=== PATIENT | male | born 1950 | race Caucasian/White ===

== ENCOUNTER 2020-01-14 20:23 | Inpatient (IN) | payer MEDICARE ==
[2020-01-14] MEDS ORDERED: Bisacodyl 10 MG SUPP PR PRN (21:06)
[2020-01-14] MEDS ORDERED: Docusate 100 MG CAP PO PRN (21:06)
[2020-01-14] MEDS ORDERED: Famotidine/PF 20 mg/2ml Vial SLOW IVP SCH (21:30)
[2020-01-14] MEDS: niCARdipine 25 MG in Sodium Chloride 0.9% 250 ML 240 ML IVPB PRN ×2 (21:39→23:22)
[2020-01-14] MEDS: Sodium Chloride 0.9% 1,000 ML IV SCH (21:50)
--- NOTE | 2020-01-14 22:50 | HP ---
HISTORY OF PRESENT ILLNESS: Mr. Tyson is a 69-year-old man, who was transferred to [facility] in [place] by EMS transfer from [facility] after presentation to the emergency department there following events at home, where he was found down in his room in a "puddle of the urine and vomit" by his family. They called 911 who came and picked him up and brought to the ER. At the [facility], CT scan of the brain was performed, which revealed a 3.5 x 3.8 cm intracerebral hemorrhage in the left cerebral hemisphere causing compression of the fourth ventricle and mild compression to the brainstem. There is also perhaps some extension into the fourth ventricle as well. He does have enlarged ventricles; however, these are stable compared to 2018 MRI of the brain. He has extensive cortical atrophy and several areas of prior infarct with malacic changes. The patient reportedly has a GCS of 12 upon presentation there and is being transferred to the ICU here in [place]. PAST MEDICAL HISTORY: Inconclusive. His family was not present at the time of interview in the ER nor at bedside here in the ICU. The patient does not have a contact information, and we do not have that available in the chart, but reportedly, he takes several medications for hypertension, diabetes, coronary arterial disease, and history of cerebrovascular accident. PAST SURGICAL HISTORY: None listed. The patient is unable to name them. MEDICATIONS: The patient unable to name. ALLERGIES: PENICILLINS AND ATORVASTATIN. PHYSICAL EXAMINATION: NEUROLOGICAL: The patient is, to my surprise, awake, alert, and oriented to name, date of , current date, location, and setting. Pupils are equally round and reactive to light. Extraocular movements are intact. There is no lid lag. There is no sign of facial droop. All cranial nerves appear to be intact. He has excellent strength proximally and distally in all four extremities. There is no sensation abnormality that I can discern. He does have great difficulty performing xbvggd-wevp-ddhjzh and gnsc-lo-fcji slides. This is most certainly related to ataxia secondary to hemorrhage in the cerebellum. VITAL SIGNS: Currently, the patient's heart rate is just about 100, systolic pressure is 119, mean arterial pressure 84, oxygen saturation at 96 on nasal cannula. ASSESSMENT: Acute intracerebral hemorrhage, likely secondary to hypertension. PLAN: Mr. Tyson appears quite well given the size and nature of his hemorrhage. I do not believe he is in need of surgical intervention in the immediate present, though this could certainly change in the next 24-48 hrs. The patient's systolic pressures upon presentation were in the 180s to 190s. He is now in excellent range in the 119s. He will need to remain under 160. For this, we have started a Cardene drip. We will need to repeat a CT scan overnight to re-evaluate hemorrhage size. I discussed with the patient the possibility of surgical intervention, which he consents to should the need arise. Q 1 hour neuro checks. Sauceda has been inserted, and we will monitor his input and output q.1 hour. Consultations have been ordered to Critical Care and to the Hospitalist Service. The patient's blood sugar upon presentation was 307, so we will initiate a p.r.n. moderate sliding scale with q.6 hour blood glucose checks. We will make patient n.p.o though may have ice chips for now. We will need to confirm his medication list with Geeta, his sister, so that we may restart home medications as needed. It is in his history that at some point he took Plavix for prior CVA. We will go ahead and initiate 1 unit of platelets stat. At this time, no additional intervention is planned. Job ID: [id number] MTDD
[2020-01-15] MEDS ORDERED: Dextrose 50% Abboject 50 ML SYRINGE IVP PRN (00:09)
[2020-01-15] MEDS ORDERED: Dextrose 5% in Water 1,000 ML IV PRN (00:09)
[2020-01-15] MEDS: Insulin Regular 300 UNITS/3 ML VIAL SC PRN ×3 (00:35→17:53)
[2020-01-15] MEDS: niCARdipine 25 MG in Sodium Chloride 0.9% 250 ML 240 ML IVPB PRN ×7 (00:44→23:18)
[2020-01-15 03:46] LABS: Anion Gap 16 mmol/L (10-20); BUN (Urea Nitrogen) 27 mg/dL (8.4-25.7); Calc. Creatinine Clearance 74 mL/min (70-130); Carbon Dioxide 20 mmol/L (23-31); Chloride 105 mmol/L (98-107); Estimated GFR-MDRD 53; Sodium 137 mmol/L (136-145)
[2020-01-15 03:47] LABS: Calcium 9.5 mg/dL (7.8-10.44); Glucose 273 mg/dL (80-115)
[2020-01-15 05:18] LABS: Hemoglobin 13.2 g/dL (14.0-18.0); Mean Corpuscular HGB CONC 34.2 g/dL (32.0-36.0); Mean Corpuscular Hemoglobin 33.5 pg (27.0-31.0); Mean Platelet Volume 8.7 fL (7.4-10.4); Platelet Count 281 thou/uL (130-400); Red Blood Cell (RBC) Count 3.93 mill/uL (4.70-6.10); White Blood Cell (WBC) Count 19.5 thou/uL (4.8-10.8)
[2020-01-15 05:26] LABS: #Lymphocytes 1.9 thou/uL (1.20-3.40); #Monocytes 1.6 thou/uL (0.11-0.59); %Basophils 0.1 % (0.0-1.0); %Eosinophils 0.1 % (0.0-10.0); %Lymphocytes 9.7 % (21.0-51.0); %Monocytes 8.1 % (0.0-10.0); %Neutrophils 82.1 % (42.0-75.0); Platelet Morphology Comment Appears Adequate
--- NOTE | 2020-01-15 08:14 | PDOC.HOSPP ---
- Subjective Encounter Date: 01/15/20 Encounter Time: 07:00 Subjective: Consult Note The history is based on EMR since the patient is a poor historian. Mr. Tyson is a 69yo M HISTORY OF PRESENT ILLNESS: Mr. Tyson is a 69-year- old man who was found down yesterday. Initially presented at [facility], CT head showed intracerebral hemorrhage in the left cerebral hemisphere causing compression of the fourth ventricle and mild compression to the brainstem so was transfered to [facility]. Was found to have grossly elevated blood pressure, started on cardizem drip, which brought his blood pressure down. Per neurosurgery, no indication for surgery at the time. Of note , the patient endorses being adherent to his medications including aspirin and plavix which he states are taken for CABG he underwent two years ago. These were held on admission on encounter, complaining of posterior, pressure, constant headache for the past two days and a dry mouth. Denies change in vision, focal weakness, paresthesias, dyspnea, dysphagia, dysarthria, chest pain, palpitations, history of bleeding or seizures. PAST SURGICAL HISTORY: Patient reports CABG two years ago. Will require confirmation SH: no smoking, drinking, or recreational drugs FH: no history of excessive bleeding MEDICATIONS: Reconciled ALLERGIES: PENICILLINS AND ATORVASTATIN. - Objective Vital Signs & Weight: Vital Signs (12 hours) Temp Pulse Ox 01/15/20 07:26 94 L 01/15/20 07:00 97.9 F 01/15/20 04:00 98.7 F 01/15/20 00:00 98.3 F 01/14/20 21:05 97 Weight Weight 218 lb 6.4 oz Most Recent Monitor Data Heart Rate from ECG 100 NIBP 115/62 NIBP BP-Mean 79 Respiration from ECG 23 SpO2 93 I&O: 01/14/20 01/15/20 01/16/20 06:59 06:59 06:59 Intake Total 2101 Output Total 145 32 Balance 1956 - Result Diagrams: 01/15/20 03:16 01/15/20 03:16 Additional Labs: Accuchecks 01/15/20 01/15/20 05:44 00:07 POC Glucose 220 H 301 H Hospitalist ROS - Review of Systems Constitutional: reports: weakness. denies: chills, sweats, malaise Eyes: denies: vision change Respiratory: denies: shortness of breath, SOB with excertion, pleuritic pain Cardiovascular: denies: chest pain, palpitations, orthopnea Gastrointestinal: denies: nausea, vomiting, abdominal pain Musculoskeletal: denies: neck pain, shoulder pain, arm pain, back pain, leg pain Skin: denies: rash Neurological: reports: weakness (endorses beign slightly weaker on left side from previous CVA) - Medication Medications: Active Medications Generic Name Dose Route Start Last Admin Trade Name Freq PRN Reason Stop Dose Admin Nicardipine HCl 25 mg/ Sodium 250 mls @ 0 mls/hr 01/14/20 21:06 01/15/20 06: 03 Chloride IVPB 250 mls INF PRN Administration SBP GREATER THAN 160 Protocol Titrate Sodium Chloride 1,000 mls @ 80 mls/hr 01/14/20 21:30 01/14/20 21:50 Normal Saline 0.9% IV 1,000 mls .[id number] DINESH Administration Insulin Human Regular 0 units 01/15/20 00:09 01/15/20 05:44 Humulin R SC 4 unit .MODERATE SLIDING SC PRN Administration MODERATE SLIDING SCALE Protocol - Exam General Appearance: awake alert General - other findings: mild distress due to headache, midly drowsy Eye: PERRL, anicteric sclera Eye - other findings: EOMI ENT: normocephalic atraumatic, no oropharyngeal lesions, dry oral mucosa Neck: no JVD Heart - other findings: irregularly irregular, rate controlled; anterior thoraic scar s/p cabg Respiratory: CTAB, no wheezes, no rales, no ronchi Gastrointestinal: soft, non-tender, non-distended, normal bowel sounds Extremities: no edema Neurological: cranial nerve grossly intact, normal sensation to touch, no new deficit. negative: facial droop, hemiplegia, speech deficit Neurological - other findings: 4/5 LUE, otherwise normal strength upper and lower extremities Psychiatric: normal affect, normal behavior, A&O x 3 Hosp A/P - Plan # intracerebral hemorrhage neurologically unchanged CT head repeated this AM #HTN BP well controlled with cardene drip; defer to NSG the transition to oral antiHTN when less strict BP control is required goal SBP < 160 #T2DM restart metformin; hold pioglitazone at this point to avoid hypoglycemic episodes. Pioglitazone may also cause headache which may make it more difficult to assess progression of headache caused by intracerebral hemorrhage #Afib rate controlled restart home sotalol; on cardene drip for BP control #CAD endorses taking aspirin and plavix; At this point will continue to hold considering lobar rather than deep hemorrhage; defer to NSG obtain records to assess indication for DAP. Based on patient's report, may need only aspirin but poor historian GI PPx: no Ix DVT PPx: SCDs
[2020-01-15] MEDS: Sotalol HCl 80 MG TAB PO SCH ×2 (08:31→21:19)
[2020-01-15] MEDS: Amlodipine 10 MG TAB PO SCH (08:37)
[2020-01-15] MEDS: Famotidine/PF 20 mg/2ml Vial SLOW IVP SCH ×2 (08:38→21:18)
[2020-01-15] MEDS: Lisinopril 20 MG TAB PO SCH ×2 (08:38→21:18)
[2020-01-15] MEDS ORDERED: DHA PO SCH (09:00)
[2020-01-15] MEDS ORDERED: Non-Formulary Item 1 EACH (Magnesium [Magnesium] 250 MG) PO SCH (09:00)
[2020-01-15] MEDS ORDERED: EPA PO SCH (09:00)
[2020-01-15] MEDS ORDERED: GARLIC PO SCH (09:00)
[2020-01-15] MEDS ORDERED: FISH OIL PO SCH (09:00)
[2020-01-15] MEDS ORDERED: OMEGA PO SCH (09:00)
[2020-01-15] MEDS ORDERED: ACARBOSE 25 MG PO SCH (09:00)
[2020-01-15] MEDS ORDERED: TURMERIC ROOT EXTRACT 500 MG PO SCH (09:00)
[2020-01-15] MEDS ORDERED: Non-Formulary Item 1 EACH (Benazepril Hcl [Benazepril Hcl] 20 MG) PO SCH (09:00)
[2020-01-15] MEDS: Magnesium Oxide 250 MG TAB PO SCH (09:04)
[2020-01-15] MEDS: metFORMIN 850 MG TAB PO SCH ×2 (09:04→17:34)
[2020-01-15] MEDS: Multivitamin W/ Minerals 1 TAB PO SCH (09:05)
[2020-01-15] MEDS: Pioglitazone HCl 15 MG TAB PO SCH (09:05)
[2020-01-15] MEDS: Fish Oil 1,000 MG CAP PO SCH (09:05)
--- NOTE | 2020-01-15 09:51 | PRG ---
DATE OF SERVICE: 01/15/2020 Mr. Tyson was admitted last night for acute cerebellar hemorrhage. This morning on examination, he is somewhat weaker on the left than he was last night. This is not surprising given the location of his hemorrhage. On the right, he still has excellent strength. He is a little bit more fatigued and sleepy than he had been. Additionally, though he has gone into atrial fibrillation with RVR, so this certainly may complicate his clinical presentation. He denies additional fatigue. Denies chest pain. Does report some occipital headache also. Pupils are still equally round, and reactive to light. Extraocular movements are intact. Yrxjrq-pmqz-smachp is maybe a little bit better than it was last night. CT scan overnight reveals to me somewhat better appearing hemorrhage than what initially was seen on CT, likely related to position in the scanner as his first CT gave us quite obscured oblique views of his normal anatomy and overnight CT was much better in terms of technique. Plan is to continue to follow along with no intervention at this time, though again I have had discussions with the patient about the possibility of urgent surgical intervention if the need present itself. Pressures this morning 109 systolic. We will relax the Cardene some. I appreciate input from our colleagues in Medicine. It appears his glucose is trending down. Prognosis is guarded. Job ID: [id number]
[2020-01-15] MEDS: Sodium Chloride 0.9% 1,000 ML IV SCH ×2 (11:04→23:18)
[2020-01-15] MEDS: Ondansetron PF 4 MG/2 ML Vial IVP PRN (11:26)
--- NOTE | 2020-01-15 11:40 | CT ---
PRELIMINARY REPORT/[facility]/EMERGENCY AFTER HOURS PROCEDURE: EXAM: CT Head Without Intravenous Contrast. CLINICAL HISTORY: F/U ICH HEAD CT WITHOUT CONTRAST: Date: 01-14-2020 Comparison: 07-21-17 History: Nausea, vomiting. Found on ground, unable to move. Technique: Axial CT imaging at 5 mm intervals from vertex through s kull base without contrast. FINDINGS: The imaged paranasal sinuses and mastoid air cells are well ae rated. There is no displaced calvarial fracture. There is a hyperdense lesion within the midline cer ebellum and left paracentral cerebellar hemisphere measuring 3.5 x 3.8 cm, consistent with a cerebell ar hemorrhage. There is extension into the fourth ventricle with mass effect on the fourth ventricle. There is periventricular deep and subcortical white matter hypodensity, evidence of small vessel dis ease. There is diffuse cerebral volume loss. IMPRESSION: Acute left cerebellar intraaxial hemorrhage with extension into the fourth ventricle. Results called to Dr. Londono at 7:55 p.m. 01-14-2020. Micahel rosurgical consultation advised. Dictated By: TIFFANY MARIA Signed By: TIFFANY MARIA Electronically s igned: 01/14/2020 9:05:37 PM TECHNIQUE: Axial computed tomography images of the head/brain without intravenous contrast. COMPARISON: None provided. FINDINGS: BRAIN: Hyperdense intraparenchymal hematoma measuring 3.5 x 4.5 cm centered in the medial aspect of the left cerebellar hemisphere extending into the fourth ventricle and out of the foramen of Luschka in the p osterior cervical spinal canal. Diffuse brain parenchymal atrophy with periventricular and subcortic al white matter hypodensities. VENTRICLES: No hydrocephalus. ORBITS: The orbits are unremarkable. SINUSES AND MASTOIDS: The paranasal sinuses and mastoid air cells are clear. SOFT TISSUES: No significant facial or scalp soft tissue swelling evident. No radiopaque foreign body is seen. BONES: No acute skull fracture. IMPRESSION: 1. Hyperdense lesion/hematoma measuring 3.5 x 4.5 cm centered in the medial aspect of the left cerebe llar hemisphere extending into the fourth ventricle. Underlying cerebellar lesion/metastatic disease not excluded. Recommend MRI with contrast. 2. No herniation. 3. Diffuse brain parenchymal atrophy with sequelae of chronic small vessel ischemic disease, overall severe. ELECTRONICALLY SIGNED BY: Nii Fernandez DO Jan 15, 2020 1:29:11 AM CDT This report is intended for review by the ordering physician only, in accordance of law. If you recei ve this report in error, please call [facility] at [phone]. FINAL REPORT BRAIN CT WITHOUT IV CONTRAST EMERGENCY AFTER HOURS EXAM [id number] HOURS 01/15/2020 COMPARISON: 01/14/2020. FINDINGS/IMPRESSION: Again noted is a large up to 4.5 cm diameter acute intraparenchymal hemorrhage in the medial aspect o f the left cerebellar hemisphere extending into the fourth ventricle, showing little change from the prior 01/14/2020 study. Atrophy and chronic white matter ischemic change. Consider nonemergent follow -up MRI. This report is in agreement with preliminary report by [facility]. POS: OFF
[2020-01-15] MEDS: TURMERIC CURCUMIN 500 MG PO SCH (13:08)
[2020-01-15] MEDS: Garlic 1,000 MG PO SCH (13:08)
--- NOTE | 2020-01-15 14:59 | CON ---
DATE OF CONSULTATION: 01/15/2020 HISTORY OF PRESENT ILLNESS: Mr. Tyson is a 69-year-old male, who presented after being found down. He was transferred from [facility] to here after a CAT scan showed brain hemorrhage. Neurosurgery does not feel there is any surgical intervention necessary. PAST MEDICAL HISTORY: Remarkable for; 1. History of CVA. 2. History of hypertension. 3. History of atrial fibrillation. 4. History of diabetes. 5. History of lipid disorder. 6. History of TIAs in the past. 7. History of coronary artery bypass grafting in the past. 8. History of coronary stenting in the past. SOCIAL HISTORY: He is a nonsmoker and nondrinker. 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 FAMILY HISTORY: Positive for vascular disease and diabetes. Negative for lung disease in early age. ALLERGIES: REPORTED TO LIPITOR AND PENICILLIN. MEDICATIONS: Have been reviewed. REVIEW OF SYSTEMS: A 10-point review of systems otherwise negative. PHYSICAL EXAMINATION: GENERAL: He is in no distress. VITAL SIGNS: Blood pressure 123/78, heart rate is 111, respiratory rate is 22. HEENT: Pupils reactive. He complains that he is hurting all over. He is complaining of headache. NECK: Without lymphadenopathy (he has had negative carotid workup 2 years ago) . LUNGS: Clear. HEART: Regular rhythm. S1 and S2 are distant. ABDOMEN: Soft and nontender, although he says it hurts when I palpate there, but he says it hurts when I squeeze his legs as well. EXTREMITIES: Lower extremities without asymmetry or edema. LABORATORY DATA: White count 19.5, hemoglobin 13.2, platelets 281. Sodium 137, potassium 4, chloride 105, bicarb 20, BUN 27, creatinine 1.33. Head CT shows a 3.5 x 4.5 cm hematoma in the left cerebellar hemisphere extending into the 4th ventricle, cerebral atrophy with ischemic changes IMPRESSION: Brain hemorrhage, clinically stable for now with no issue with protecting his airway and there are no respiratory issues. He has no signs of neurogenic pulmonary edema at this time. We will follow with the other physicians caring for him. This is a 70 min consult with greater than 50% of the time spent on the unit with coordination of care. Job ID: [id number] [facility]
[2020-01-15] MEDS ORDERED: Pravastatin Sodium 40 MG TAB PO SCH (21:00)
[2020-01-15] MEDS: Atorvastatin Calcium 10 MG TAB PO SCH (21:20)
[2020-01-15] MEDS ORDERED: Metoprolol Tartrate 5 MG/5 ML VIAL IVP SCH (22:07)
[2020-01-16] MEDS: Insulin Regular 300 UNITS/3 ML VIAL SC PRN ×4 (06:36→23:51)
--- NOTE | 2020-01-16 08:15 | PDOC.HOSPP ---
- Subjective Encounter Date: 01/16/20 Encounter Time: 07:00 Subjective: no overnight events. Afib continues to be poorly controlled despite restarting sotalol. This morning, complains of posterior headache that is stable. Otherwise no complaints - Objective Vital Signs & Weight: Vital Signs (12 hours) Temp Pulse BP Pulse Ox 01/16/20 07:26 94 L 01/16/20 07:11 97.9 F 01/16/20 04:00 98.1 F 01/16/20 00:00 98.3 F 01/15/20 21:19 128 H 132/90 01/15/20 21:18 137/90 Weight Weight 217 lb 11.2 oz Most Recent Monitor Data Heart Rate from ECG 128 NIBP 146/101 NIBP BP-Mean 116 Respiration from ECG 19 SpO2 95 I&O: 01/15/20 01/16/20 01/17/20 06:59 06:59 06:59 Intake Total 2101 2853 40 Output Total 145 902 120 Balance 1955 Result Diagrams: 01/15/20 03:16 01/15/20 03:16 Additional Labs: Accuchecks 01/16/20 01/16/20 01/15/20 06:39 01:31 17:41 POC Glucose 189 H 187 H 230 H 01/15/20 11:46 POC Glucose 210 H Hospitalist ROS - Review of Systems Eyes: denies: vision change Respiratory: denies: cough, dry, shortness of breath Cardiovascular: denies: chest pain, palpitations, orthopnea, paroxysmal noc. dyspnea Gastrointestinal: denies: nausea, vomiting, abdominal pain, diarrhea Neurological: denies: weakness, numbness, change in speech - Medication Medications: Active Medications Generic Name Dose Route Start Last Admin Trade Name Freq PRN Reason Stop Dose Admin Acarbose 25 mg 01/15/20 09:00 01/15/20 21:19 Precose PO 25 mg TID DINESH Administration Amlodipine Besylate 10 mg 01/15/20 09:00 01/15/20 08:37 Norvasc PO 10 mg DAILY DINESH Administration Atorvastatin Calcium 10 mg 01/15/20 21:00 01/15/20 21:20 Lipitor PO 10 mg HS DINESH Administration Famotidine 20 mg 01/15/20 09:00 01/15/20 21:18 Pepcid SLOW IVP 20 mg Q12HR DINESH Administration Fish Oil 1,000 mg 01/15/20 09:00 01/15/20 09:05 Fish Oil PO 1,000 mg DAILY DINESH Administration Nicardipine HCl 25 mg/ Sodium 250 mls @ 0 mls/hr 01/14/20 21:06 01/15/20 23: 18 Chloride IVPB 250 mls INF PRN Administration SBP GREATER THAN 160 Protocol Titrate Insulin Human Regular 0 units 01/15/20 00:09 01/16/20 06:36 Humulin R SC 2 unit .MODERATE SLIDING SC PRN Administration MODERATE SLIDING SCALE Protocol Iron/Minerals/Multivitamins 1 tab 01/15/20 09:00 01/15/20 09:05 Theragran M PO 1 tab DAILY DINESH Administration Lisinopril 20 mg 01/15/20 09:00 01/15/20 21:18 Zestril PO 20 mg BID DINESH Administration Magnesium Oxide 250 mg 01/15/20 09:00 01/15/20 09:04 Magnesium Oxide PO 250 mg DAILY DINESH Administration Metformin HCl 850 mg 01/15/20 08:00 01/15/20 17:34 Glucophage PO 850 mg BID-WM DINESH Administration Ondansetron HCl 4 mg 01/14/20 21:06 01/15/20 11:26 Zofran IVP 4 mg BIDPRN PRN Administration Nausea/Vomiting Garlic 0 each 01/15/20 09:00 01/15/20 13:08 PO Not Given DAILY DINESH Turmeric Curcumin 0 each 01/15/20 09:00 01/15/20 13:08 PO Not Given DAILY DINESH Pioglitazone HCl 45 mg 01/15/20 09:00 01/15/20 09:05 Actos PO 45 mg DAILY DINESH Administration Sotalol HCl 40 mg 01/15/20 09:00 01/15/20 21:19 Betapace PO 40 mg BID DINESH Administration - Exam General Appearance: awake alert General - other findings: mild distress due to headache Eye: PERRL, anicteric sclera Eye - other findings: pupils 3mm b/l, slightly reactive to light ENT: normocephalic atraumatic, dry oral mucosa Neck: no JVD Heart: irregular Respiratory: CTAB, no wheezes, no rales, no ronchi, normal chest expansion Gastrointestinal: soft, non-tender, non-distended, normal bowel sounds Extremities: no edema Neurological: no weakness, no new deficit. negative: facial droop, hemiplegia, speech deficit, vision deficit (left sided weakness 4/5, chronic) Psychiatric: normal affect, normal behavior, A&O x 3 Hosp A/P - Plan # intracerebral hemorrhage neurologically unchanged CT head repeated this AM #Afib w RVR rate poorly controlled continue home sotalol; match I/O; Consdering BP well controlled and afib poorly controlled, advise to transition from nicardipine to cardizem drip. avoid medications that can convert to sinus such as amiodarone since patient is off anticoagulation and can throw emboli to brain on conversion obtain records #GENE likely prerenal -Gentle NS IVF; if continues to be NPO, consider NS/D5W #HTN BP well controlled with nicardipine drip; goal SBP < 160 #T2DM continue metformin; hold pioglitazone at this point to avoid hypoglycemic episodes. Pioglitazone may also cause headache which may make it more difficult to assess progression of headache caused by intracerebral hemorrhage #CAD endorses taking aspirin and plavix; At this point will continue to hold considering lobar rather than deep hemorrhage; defer to NSG obtain records to assess indication for DAP. Based on patient's report, may need only aspirin but poor historian GI PPx: no Ix DVT PPx: SCDs
[2020-01-16] MEDS: metFORMIN 850 MG TAB PO SCH ×2 (08:33→17:03)
[2020-01-16] MEDS: Multivitamin W/ Minerals 1 TAB PO SCH (08:34)
[2020-01-16] MEDS: Fish Oil 1,000 MG CAP PO SCH (08:34)
[2020-01-16] MEDS: Sotalol HCl 80 MG TAB PO SCH ×2 (08:34→20:55)
[2020-01-16] MEDS: Magnesium Oxide 250 MG TAB PO SCH (08:34)
[2020-01-16] MEDS: Lisinopril 20 MG TAB PO SCH ×2 (08:34→20:54)
[2020-01-16] MEDS: Amlodipine 10 MG TAB PO SCH (08:34)
[2020-01-16] MEDS: Pioglitazone HCl 15 MG TAB PO SCH (08:35)
[2020-01-16] MEDS: Famotidine/PF 20 mg/2ml Vial SLOW IVP SCH ×2 (08:35→20:54)
[2020-01-16] MEDS: Garlic 1,000 MG PO SCH (09:00)
[2020-01-16] MEDS: TURMERIC CURCUMIN 500 MG PO SCH (09:00)
--- NOTE | 2020-01-16 09:58 | RAD ---
CHEST 1 VIEW PORTABLE: HISTORY: Worsening hypoxia. COMPARISON: 01/14/2020. FINDINGS: Poor inspiration. Evidence for bilateral vascular congestion which appears to be somewhat more promi nent than on the prior study. No new confluent pneumonia or pleural effusion. IMPRESSION: At least borderline-sized heart with bilateral vascular congestion. POS: OFF
--- NOTE | 2020-01-16 10:24 | PRG ---
DATE OF SERVICE: 01/16/2020 Mr. Tyson was admitted late Friday night for cerebellar hemorrhage. This morning, he continues to actually look quite well, but GCS continues to be 15. There is only some very mild confusion about his more chronic history; however, he is able to tell me that he is in the hospital at [facility]. He started to complain some about appetite, which I think we have reached a point now, where we can go ahead and start to introduce p.o. diet starting slow with clear liquids and as he tolerates this, advance to a more robust diet. Pressures have continued to look excellent. Unfortunately, he still remains in atrial fibrillation despite restarting home medications for this purpose. Medicine team has recommended Cardizem. I would defer to their judgment for dosing on this. Again, I believe at least at this point we are still able to avoid surgical intervention deciding his excellent neurologic exam. Neurosurgery will continue to follow at this time, but I believe his prognosis at this point looks to be much better than initially thought. Job ID: [id number]
[2020-01-16] MEDS: Diltiazem 125 MG in Sodium Chloride 0.9% 100 ML IVPB SCH (10:49)
--- NOTE | 2020-01-16 10:53 | PRG ---
DATE OF SERVICE: 01/16/2020 Mr. Tyson is now 2 days status post admission for a large posterior fossa hemorrhage. Despite the size of the hemorrhage and the early evidence of compromise of the fourth ventricle, we have not at this point needed to place a ventriculostomy. He does have ventriculomegaly that is stable as compared to a baseline exam perform a few years ago. He also has a substantial degree of supratentorial atrophy. Clinically, he has been quite stable. He remains awake and alert and has a GCS score of 15. He does have intermittent episodes of confusion. Medicine Team continues to work with us on treating his medical issues. We can start to advance his diet. We will continue to follow along closely as Mr. Tyson continues to recover from this hemorrhage. Job ID: [id number]
--- NOTE | 2020-01-16 15:38 | PRG ---
DATE OF SERVICE: 01/16/2020 SUBJECTIVE: Mr. Tyson is still complaining of hurting all over. He said his head hurts the worst. OBJECTIVE: VITAL SIGNS: Heart rates in the 90s, blood pressure 141/94, respiratory rate in the 20s, oximetry is 94. HEAD AND NECK: Unremarkable. LUNGS: Clear. He is not having any issues with secretions. HEART: Regular rhythm. ABDOMEN: Soft. EXTREMITIES: Without asymmetry. LABORATORY DATA: There is no new lab other than blood glucoses. IMPRESSION: Brain hemorrhage. He remains stable. Glucose control and increasing his activity will be the next step. It does not appear that he will require surgery at least at this time. We will continue to follow. ADDENDUM: Mr. Tyson's atrial fibrillation was noted today with a rate of 115 to 120. We started him on Cardizem drip and added p.o. Cardizem. His p.o. amlodipine might be discontinued tomorrow and the Cardizem dose may be increased. Job ID: [id number]
[2020-01-16] MEDS: niCARdipine 25 MG in Sodium Chloride 0.9% 250 ML 240 ML IVPB PRN (19:00)
[2020-01-16] MEDS: Atorvastatin Calcium 10 MG TAB PO SCH (20:54)
[2020-01-17] MEDS: Insulin Regular 300 UNITS/3 ML VIAL SC PRN ×2 (05:45→11:55)
[2020-01-17 08:12] LABS: Anion Gap 15 mmol/L (10-20); BUN (Urea Nitrogen) 25 mg/dL (8.4-25.7); Calc. Creatinine Clearance 128 mL/min (70-130); Calcium 9.2 mg/dL (7.8-10.44); Carbon Dioxide 27 mmol/L (23-31); Chloride 99 mmol/L (98-107); Estimated GFR-MDRD Greater than 90; Glucose 220 mg/dL (80-115); Magnesium 2.1 mg/dL (1.6-2.6); Potassium 3.7 mmol/L (3.5-5.1); Sodium 137 mmol/L (136-145)
--- NOTE | 2020-01-17 08:20 | PRG ---
DATE OF SERVICE: 01/17/2020 SUBJECTIVE: Mr. Tyson says he is feeling better. His headache is less of an issue. OBJECTIVE: VITAL SIGNS: Heart rate is 90 to 118, blood pressure 144/93, respiratory rate is 18. He is still in atrial fibrillation. LUNGS: Clear. HEART: Regular rhythm, atrial fib on monitor. ABDOMEN: Soft. EXTREMITIES: Without edema. LABORATORY DATA: Lab has not been repeated. I will order lab for tomorrow. We will continue to follow. Job ID: [id number]
[2020-01-17] MEDS: metFORMIN 850 MG TAB PO SCH ×2 (08:55→16:52)
[2020-01-17] MEDS: Famotidine 20 MG TAB PO SCH ×2 (08:56→20:46)
[2020-01-17] MEDS: Lisinopril 20 MG TAB PO SCH ×2 (08:56→20:47)
[2020-01-17] MEDS: Fish Oil 1,000 MG CAP PO SCH (08:56)
[2020-01-17] MEDS: Magnesium Oxide 250 MG TAB PO SCH (08:56)
[2020-01-17] MEDS: Multivitamin W/ Minerals 1 TAB PO SCH (08:57)
[2020-01-17] MEDS: Diltiazem 125 MG in Sodium Chloride 0.9% 100 ML IVPB SCH (08:57)
[2020-01-17] MEDS: Pioglitazone HCl 15 MG TAB PO SCH (08:57)
[2020-01-17] MEDS: Sotalol HCl 80 MG TAB PO SCH ×2 (08:58→20:46)
[2020-01-17] MEDS: TURMERIC CURCUMIN 500 MG PO SCH (11:42)
[2020-01-17] MEDS: Garlic 1,000 MG PO SCH (11:42)
--- NOTE | 2020-01-17 15:28 | PDOC.HOSPP ---
- Subjective Encounter Date: 01/17/20 Encounter Time: 07:00 Subjective: no overnight events. this morning feeling well and has no complaints. Denies headache, change in vision, dyspnea, dysphagia, dysarthria, new focal weakness - Objective Vital Signs & Weight: Vital Signs (12 hours) Temp Pulse Resp BP BP BP Pulse Ox 01/17/20 14:42 97 152/84 H 01/17/20 14:23 98.3 F 93 18 174/89 H 96 01/17/20 12:00 98.4 F 01/17/20 08:58 120 H 137/92 H 01/17/20 08:56 153/101 H 01/17/20 08:00 98.5 F 93 L 01/17/20 06:28 96 01/17/20 04:00 97.9 F Weight Weight 228 lb 13.437 oz Most Recent Monitor Data Heart Rate from ECG 101 NIBP 145/92 NIBP BP-Mean 109 Respiration from ECG 21 SpO2 95 I&O: 01/16/20 01/17/20 01/18/20 06:59 06:59 06:59 Intake Total 2853 1885.3 785 Output Total 902 1561 620 Balance 1951 324.3 165 Result Diagrams: 01/15/20 03:16 01/17/20 07:50 Additional Labs: Accuchecks 01/17/20 01/17/20 01/16/20 11:59 05:48 23:55 POC Glucose 266 H 208 H 197 H 01/16/20 17:51 POC Glucose 228 H Hospitalist ROS - Review of Systems All other systems reviewed; all pertinent +/- noted in HPI/Subj - Medication Medications: Active Medications Generic Name Dose Route Start Last Admin Trade Name Freq PRN Reason Stop Dose Admin Acarbose 25 mg 01/15/20 09:00 01/17/20 14:44 Precose PO 25 mg TID DINESH Administration Atorvastatin Calcium 10 mg 01/15/20 21:00 01/16/20 20:54 Lipitor PO 10 mg HS DINESH Administration Famotidine 20 mg 01/17/20 09:00 01/17/20 08:56 Pepcid PO 20 mg Q12HR DINESH Administration Fish Oil 1,000 mg 01/15/20 09:00 01/17/20 08:56 Fish Oil PO 1,000 mg DAILY DINESH Administration Nicardipine HCl 25 mg/ Sodium 250 mls @ 0 mls/hr 01/14/20 21:06 01/16/20 19: 00 Chloride IVPB 250 mls INF PRN Administration SBP GREATER THAN 160 Protocol Titrate Diltiazem HCl 125 mg/ Sodium 125 mls @ 5 mls/hr 01/16/20 10:30 01/17/20 08:57 Chloride IVPB 125 mls INF DINESH Administration Protocol 5 MG/HR Iron/Minerals/Multivitamins 1 tab 01/15/20 09:00 01/17/20 08:57 Theragran M PO 1 tab DAILY DINESH Administration Lisinopril 20 mg 01/15/20 09:00 01/17/20 08:56 Zestril PO 20 mg BID DINESH Administration Magnesium Oxide 250 mg 01/15/20 09:00 01/17/20 08:56 Magnesium Oxide PO 250 mg DAILY DINESH Administration Metformin HCl 850 mg 01/15/20 08:00 01/17/20 08:55 Glucophage PO 850 mg BID-WM DINESH Administration Ondansetron HCl 4 mg 01/14/20 21:06 01/15/20 11:26 Zofran IVP 4 mg BIDPRN PRN Administration Nausea/Vomiting Garlic 1,000 Mg 0 each 01/15/20 09:00 01/17/20 11:42 PO 1 each DAILY DINESH Administration Turmeric Curcumin 0 each 01/15/20 09:00 01/17/20 11:42 500 Mg Cap PO 1 each DAILY DINESH Administration Pioglitazone HCl 45 mg 01/15/20 09:00 01/17/20 08:57 Actos PO 45 mg DAILY DINESH Administration Sotalol HCl 40 mg 01/15/20 09:00 01/17/20 08:58 Betapace PO 40 mg BID DINESH Administration - Exam General Appearance: NAD, awake alert Eye: PERRL, anicteric sclera Neck: no JVD Heart: no murmur, no gallops, no rubs, irregular Heart - other findings: highly variable rate 90-140s overnight Respiratory: CTAB, no wheezes, no rales, no ronchi Gastrointestinal: soft, non-tender, non-distended, normal bowel sounds Psychiatric: normal affect, normal behavior, A&O x 3 Hosp A/P - Plan # intracerebral hemorrhage neurologically unchanged repeat CT head showed no change per NSG, no indication for surgical intervention; transferred to stroke unit #Afib w/ RVR Poor control. Will continue cardizem drip and transition to oral. based on current IV dose will need about 360mg daily keep I/O balanced to avoid dehydration #HTN Stopped cardene, now on lisinopril, amlodipine, cardizem Can start chlorthalidone and labetalol PRN for SBP > 160 #T2DM continue metformin, pioglitazone. Started glargine, change to mild correction due to poorly controlle hyperglycemia #CAD endorses taking aspirin and plavix; At this point will continue to hold considering lobar rather than deep hemorrhage; defer to NSG obtain records to assess indication for DAP. Based on patient's report, may need only aspirin but poor historian GI PPx: no Ix DVT PPx: SCDs Full code
[2020-01-17] MEDS ORDERED: Chlorthalidone 25 MG TAB PO SCH (15:30)
[2020-01-17] MEDS ORDERED: Labetalol HCl 100 MG/20 ML VIAL SLOW IVP PRN (15:31)
[2020-01-17] MEDS: HumaLOG 300 UNITS/3 ML VIAL SC PRN (17:03)
[2020-01-17] MEDS: Acetaminophen 325 MG TAB PO PRN ×2 (17:03→23:22)
--- NOTE | 2020-01-17 19:29 | PDOC.EVN ---
Event Note - Event Note Event Note: Code green, Patient NIH 12, was 4 prior. Patient somnolent, oriented x 3. EKG afib 100s-110s, normal bp, pulse, RR and spo2, afebrile. Ordered CT brain STAT. discussed with Dr Anderson.
--- NOTE | 2020-01-17 19:46 | CT ---
CT head noncontrast HISTORY: Syncope. Intracranial hemorrhage. COMPARISON: 01/15/2020. FINDINGS: The large irregular shaped intraparenchymal hematoma centered within the left cerebellar he misphere extending into the fourth ventricle again demonstrated. It measures 4.2 cm x 3.2 cm greatest diameters on today's exam. Slightly smaller than on the prior study. No new areas of hemorrhage evident. Diffuse cortical atrophy and chronic ischemic small vessel disease similar in appearance. IMPRESSION : Interval evolution and slight retraction of the left cerebellar hematoma. No new abnormalities.
[2020-01-17] MEDS: Atorvastatin Calcium 10 MG TAB PO SCH (20:47)
[2020-01-17] MEDS: Insulin Glargine 10 UNITS in Pre-Filled Syringe 1 EACH SC SCH (20:47)
[2020-01-18 05:18] LABS: Eosinophils 1 % (0-10); Hemoglobin 14.3 g/dL (14.0-18.0); Lymphocytes 20 % (21-51); MDiff Complete? YES; Mean Corpuscular HGB CONC 32.1 g/dL (32.0-36.0); Mean Corpuscular Volume 96.4 fL (78.0-98.0); Mean Platelet Volume 8.4 fL (7.4-10.4); Monocytes 4 % (0-10); Neutrophil 75 % (42-75); Platelet Count 286 thou/uL (130-400); RBC Distribution Width 13.1 % (11.5-14.5); Red Blood Cell (RBC) Count 4.63 mill/uL (4.70-6.10); White Blood Cell (WBC) Count 12.1 thou/uL (4.8-10.8)
[2020-01-18 05:30] LABS: Anion Gap 17 mmol/L (10-20); BUN (Urea Nitrogen) 19 mg/dL (8.4-25.7); Calc. Creatinine Clearance 133 mL/min (70-130); Calcium 9.3 mg/dL (7.8-10.44); Carbon Dioxide 25 mmol/L (23-31); Chloride 95 mmol/L (98-107); Estimated GFR-MDRD Greater than 90; Glucose 230 mg/dL (80-115); Magnesium 1.9 mg/dL (1.6-2.6); Potassium 3.6 mmol/L (3.5-5.1); Sodium 133 mmol/L (136-145)
[2020-01-18] MEDS: HumaLOG 300 UNITS/3 ML VIAL SC PRN ×3 (05:44→17:31)
[2020-01-18] MEDS: Acetaminophen 325 MG TAB PO PRN (07:32)
--- NOTE | 2020-01-18 08:44 | RAD ---
XR Chest 1 View Portable History: Desaturation with hypoxia Comparison: Radiograph 2 days prior Findings: Heart size is enlarged. Mild portal venous congestion. No pneumothorax. No significant effu johnny. No acute osseous abnormality. All the midline slightly wires appear to be fracture with leftward displacement of a few of the fract ured wires. Impression: Cardiomegaly and mild pulmonary venous congestion.
[2020-01-18] MEDS: Garlic 1,000 MG PO SCH (08:57)
[2020-01-18] MEDS: TURMERIC CURCUMIN 500 MG PO SCH (08:58)
[2020-01-18] MEDS: metFORMIN 850 MG TAB PO SCH ×2 (08:58→17:11)
[2020-01-18] MEDS: Chlorthalidone 25 MG TAB PO SCH (08:59)
[2020-01-18] MEDS: Famotidine 20 MG TAB PO SCH (08:59)
[2020-01-18] MEDS: Magnesium Oxide 250 MG TAB PO SCH (09:00)
[2020-01-18] MEDS: Pioglitazone HCl 15 MG TAB PO SCH (09:00)
[2020-01-18] MEDS: Fish Oil 1,000 MG CAP PO SCH (09:00)
[2020-01-18] MEDS: Multivitamin W/ Minerals 1 TAB PO SCH (09:00)
[2020-01-18] MEDS: Sotalol HCl 80 MG TAB PO SCH ×2 (09:00→21:29)
[2020-01-18] MEDS: Lisinopril 20 MG TAB PO SCH ×2 (09:00→21:30)
[2020-01-18] MEDS: Ondansetron PF 4 MG/2 ML Vial IVP PRN (09:10)
--- NOTE | 2020-01-18 10:55 | PRG ---
DATE OF SERVICE: 01/18/2020 Mr. Tyson is on the 4th day of his hospital stay for cerebral hemorrhage. This morning, he has since been transferred into the Stroke Unit, continues to have stable neurologic function and a GCS of 15. He was a little fatigued from time to time neuro checks and began the process of disposition planning. He likely will need some form of rehab given his ataxic symptoms, but at least as of now, we appear to be past the more critical stages of concern regarding intracerebral hemorrhage. Job ID: [id number]
--- NOTE | 2020-01-18 14:03 | PDOC.HOSPP ---
- Subjective Encounter Date: 01/18/20 Encounter Time: 10:00 Subjective: overnight, desatted, code green for neurological change, NIH score increased from 4 to 11, repeat CT head showed interval evolution and retraction of cerebral hematoma. This morning, complains of back pain that is improved with tylenol and inability to move left leg. Otherwise no complaints. - Objective Vital Signs & Weight: Vital Signs (12 hours) Temp Pulse Resp BP BP Pulse Ox 01/18/20 11:13 97.7 F 77 16 146/78 H 92 L 01/18/20 09:00 133 H 01/18/20 07:40 91 L 01/18/20 07:10 98.3 F 133 H 20 173/98 H 91 L Weight Admit Weight 218 lb 6.4 oz Weight 228 lb Most Recent Monitor Data Heart Rate from ECG 101 NIBP 145/92 NIBP BP-Mean 109 Respiration from ECG 21 SpO2 95 I&O: 01/17/20 01/18/20 01/19/20 06:59 06:59 06:59 Intake Total 1885.3 785 Output Total 1561 620 Balance 324.3 165 Result Diagrams: 01/18/20 04:27 01/18/20 04:26 Additional Labs: Accuchecks 01/18/20 01/18/20 12:18 05:46 POC Glucose 230 H 213 H Hospitalist ROS - Review of Systems Constitutional: denies: chills, sweats Eyes: denies: vision change Respiratory: denies: cough, shortness of breath Cardiovascular: denies: chest pain, palpitations, orthopnea Gastrointestinal: denies: nausea, vomiting, abdominal pain, diarrhea Neurological: reports: weakness. denies: numbness, incoordination, change in speech, confusion - Medication Medications: Active Medications Generic Name Dose Route Start Last Admin Trade Name Freq PRN Reason Stop Dose Admin Acarbose 25 mg 01/15/20 09:00 01/18/20 08:58 Precose PO 25 mg TID DINESH Administration Atorvastatin Calcium 10 mg 01/15/20 21:00 01/17/20 20:47 Lipitor PO 10 mg HS DINESH Administration Chlorthalidone 12.5 mg 01/18/20 09:00 01/18/20 08:59 [place] PO 12.5 mg DAILY DINESH Administration Diltiazem HCl 90 mg 01/17/20 17:00 01/18/20 11:19 Cardizem PO 90 mg ACHS DINESH Administration Famotidine 20 mg 01/17/20 09:00 01/18/20 08:59 Pepcid PO 20 mg Q12HR DINESH Administration Fish Oil 1,000 mg 01/15/20 09:00 01/18/20 09:00 Fish Oil PO 1,000 mg DAILY DINESH Administration Diltiazem HCl 125 mg/ Sodium 125 mls @ 5 mls/hr 01/16/20 10:30 01/17/20 08:57 Chloride IVPB 125 mls INF DINESH Administration Protocol 5 MG/HR Insulin Glargine 10 units/ 0.1 mls @ 0 mls/hr 01/17/20 21:00 01/17/20 20:47 Miscellaneous Medication SC 0.1 mls HS DINESH Administration Insulin Human Lispro 0 units 01/17/20 15:25 01/18/20 12:18 Humalog SC 3 unit .MILD SLIDING SCALE PRN Administration Mild Correctional Scale Iron/Minerals/Multivitamins 1 tab 01/15/20 09:00 01/18/20 09:00 Theragran M PO 1 tab DAILY DINESH Administration Lisinopril 20 mg 01/15/20 09:00 01/18/20 09:00 Zestril PO 20 mg BID DINESH Administration Magnesium Oxide 250 mg 01/15/20 09:00 01/18/20 09:00 Magnesium Oxide PO 250 mg DAILY DINESH Administration Metformin HCl 850 mg 01/15/20 08:00 01/18/20 08:58 Glucophage PO 850 mg BID-WM DINESH Administration Ondansetron HCl 4 mg 01/14/20 21:06 01/18/20 09:10 Zofran IVP 4 mg BIDPRN PRN Administration Nausea/Vomiting Garlic 1,000 Mg 0 each 01/15/20 09:00 01/18/20 08:57 PO 1 each DAILY DINESH Administration Turmeric Curcumin 0 each 01/15/20 09:00 01/18/20 08:58 500 Mg Cap PO 1 each DAILY DINESH Administration Pioglitazone HCl 45 mg 01/15/20 09:00 01/18/20 09:00 Actos PO 45 mg DAILY DINESH Administration Sotalol HCl 40 mg 01/15/20 09:00 01/18/20 09:00 Betapace PO 40 mg BID DINESH Administration - Exam General - other findings: drowsy, diaphoretic Eye: PERRL, anicteric sclera Eye - other findings: EOMI ENT: normocephalic atraumatic, moist mucosa Neck: no JVD Heart: irregular Respiratory: CTAB, no wheezes, no rales, no ronchi Gastrointestinal: soft, non-tender, non-distended, normal bowel sounds Neurological: cranial nerve grossly intact. negative: facial droop, speech deficit, vision deficit Musculoskeletal - other findings: LLE - 0/5, worse compared to yesterday; LUE 4/ 5. Right 5/5 throughout Psychiatric: A&O x 3 Hosp A/P - Plan #left cerebellar hemorrhage neurological deterioration overnight repeat CT head showed interval evolution and retraction of cerebral hematoma per NSG, no indication for surgical intervention; continue monitoring worseninig neurologic exam may be result of acute stroke in context of afib without anticoagulation. However, considering intracerebral hemorrhage, options are limited; defer to NSG recommend to stop famotidine. No indication and anticholinergic activity can result in confusion/drowsiness in eldery #Afib w/ RVR better controlled on cardizem oral continue short acting; if rate remains well controlled will transition to long acting tomorrow #HTN continue chlorthalidone, lisinopril, cardizem; labetalol PRN for SBP > 160 #T2DM continue metformin, pioglitazone. increased glargine due to poorly controlled BG #CAD endorses taking aspirin and plavix; At this point will continue to hold considering lobar rather than deep hemorrhage; defer to NSG obtain records to assess indication for DAP. Based on patient's report, may need only aspirin but poor historian GI PPx: no Ix DVT PPx: SCDs Full code
[2020-01-18] MEDS: Acetaminophen 500 MG TAB PO PRN (17:11)
[2020-01-18] MEDS: Atorvastatin Calcium 10 MG TAB PO SCH (21:29)
[2020-01-18] MEDS: Insulin Glargine 10 UNITS in Pre-Filled Syringe 1 EACH SC SCH (21:45)
[2020-01-19] MEDS: Acetaminophen 500 MG TAB PO PRN (00:44)
[2020-01-19 05:44] LABS: Anion Gap 16 mmol/L (10-20); BUN (Urea Nitrogen) 21 mg/dL (8.4-25.7); Calc. Creatinine Clearance 126 mL/min (70-130); Calcium 9.2 mg/dL (7.8-10.44); Carbon Dioxide 24 mmol/L (23-31); Chloride 93 mmol/L (98-107); Estimated GFR-MDRD Greater than 90; Glucose 237 mg/dL (80-115); Magnesium 1.8 mg/dL (1.6-2.6); Potassium 3.6 mmol/L (3.5-5.1); Sodium 129 mmol/L (136-145)
[2020-01-19] MEDS: HumaLOG 300 UNITS/3 ML VIAL SC PRN ×3 (06:38→18:26)
[2020-01-19 06:43] LABS: Hemoglobin 14.6 g/dL (14.0-18.0); Mean Corpuscular HGB CONC 32.6 g/dL (32.0-36.0); Mean Corpuscular Hemoglobin 31.3 pg (27.0-31.0); Mean Platelet Volume 8.4 fL (7.4-10.4); Platelet Count 270 thou/uL (130-400); RBC Distribution Width 12.9 % (11.5-14.5); Red Blood Cell (RBC) Count 4.68 mill/uL (4.70-6.10); White Blood Cell (WBC) Count 11.5 thou/uL (4.8-10.8)
[2020-01-19] MEDS: Pioglitazone HCl 15 MG TAB PO SCH (08:23)
[2020-01-19] MEDS: Sotalol HCl 80 MG TAB PO SCH ×2 (08:23→20:42)
[2020-01-19] MEDS: Fish Oil 1,000 MG CAP PO SCH (08:23)
[2020-01-19] MEDS: Multivitamin W/ Minerals 1 TAB PO SCH (08:23)
[2020-01-19] MEDS: Magnesium Oxide 250 MG TAB PO SCH (08:23)
[2020-01-19] MEDS: Lisinopril 20 MG TAB PO SCH ×2 (08:23→20:43)
[2020-01-19] MEDS: TURMERIC CURCUMIN 500 MG PO SCH (08:33)
[2020-01-19] MEDS: Garlic 1,000 MG PO SCH (08:33)
[2020-01-19 09:09] LABS: Band 6 % (5-11); Lymphocytes 14 % (21-51); MDiff Complete? YES; Monocytes 8 % (0-10); Neutrophil 72 % (42-75); RBC Morphology Normal
[2020-01-19] MEDS: metFORMIN 850 MG TAB PO SCH ×2 (09:18→17:09)
[2020-01-19] MEDS: Chlorthalidone 25 MG TAB PO SCH (09:18)
--- NOTE | 2020-01-19 11:12 | PDOC.HOSPP ---
- Subjective Encounter Date: 01/19/20 Encounter Time: 08:00 Subjective: no overnight events. this morning, feeling weak and complains of persistent back pain. - Objective Vital Signs & Weight: Vital Signs (12 hours) Temp Pulse Resp BP BP Pulse Ox 01/19/20 08:33 98 01/19/20 08:23 86 148/76 H 01/19/20 07:37 98 F 94 20 148/76 H 98 01/19/20 05:00 97.8 F 102 H 21 H 174/90 H 95 01/19/20 00:53 98 01/19/20 00:00 98.1 F 89 20 154/93 H 93 L Weight Admit Weight 218 lb 6.4 oz Weight 227 lb Most Recent Monitor Data Heart Rate from ECG 101 NIBP 145/92 NIBP BP-Mean 109 Respiration from ECG 21 SpO2 95 I&O: 01/18/20 01/19/20 01/20/20 06:59 06:59 06:59 Intake Total 785 Output Total 620 1050 Balance 165 -1050 Result Diagrams: 01/19/20 05:01 01/19/20 05:01 Additional Labs: Accuchecks 01/18/20 01/18/20 01/18/20 21:49 17:24 12:18 POC Glucose 208 H 222 H 230 H Hospitalist ROS - Review of Systems Constitutional: reports: weakness. denies: chills, sweats Eyes: denies: pain, vision change Respiratory: denies: cough, shortness of breath, pleuritic pain, sputum Cardiovascular: denies: chest pain, palpitations, orthopnea Gastrointestinal: denies: nausea, vomiting, abdominal pain, diarrhea Genitourinary: denies: hematuria - Medication Medications: Active Medications Generic Name Dose Route Start Last Admin Trade Name Freq PRN Reason Stop Dose Admin Acarbose 25 mg 01/15/20 09:00 01/19/20 08:22 Precose PO 25 mg TID DINESH Administration Acetaminophen 1,000 mg 01/18/20 13:59 01/19/20 00:44 Tylenol PO 1,000 mg Q6H PRN Administration Moderate to Severe Pain (6-10) Atorvastatin Calcium 10 mg 01/15/20 21:00 01/18/20 21:29 Lipitor PO 10 mg HS DINESH Administration Chlorthalidone 12.5 mg 01/18/20 09:00 01/19/20 09:18 [place] PO 12.5 mg DAILY DINESH Administration Fish Oil 1,000 mg 01/15/20 09:00 01/19/20 08:23 Fish Oil PO 1,000 mg DAILY DINESH Administration Insulin Glargine 10 units/ 0.1 mls @ 0 mls/hr 01/17/20 21:00 01/18/20 21:45 Miscellaneous Medication SC 0.1 mls HS DINESH Administration Insulin Human Lispro 0 units 01/17/20 15:25 01/19/20 06:38 Humalog SC 3 unit .MILD SLIDING SCALE PRN Administration Mild Correctional Scale Iron/Minerals/Multivitamins 1 tab 01/15/20 09:00 01/19/20 08:23 Theragran M PO 1 tab DAILY DINESH Administration Labetalol HCl 10 mg 01/17/20 15:31 01/18/20 15:20 Normodyne SLOW IVP 10 mg Q4H PRN Administration SBP GREATER THAN 160 Lisinopril 20 mg 01/15/20 09:00 01/19/20 08:23 Zestril PO 20 mg BID DINESH Administration Magnesium Oxide 250 mg 01/15/20 09:00 01/19/20 08:23 Magnesium Oxide PO 250 mg DAILY DINESH Administration Metformin HCl 850 mg 01/15/20 08:00 01/19/20 09:18 Glucophage PO 850 mg BID-WM DINESH Administration Ondansetron HCl 4 mg 01/14/20 21:06 01/18/20 09:10 Zofran IVP 4 mg BIDPRN PRN Administration Nausea/Vomiting Garlic 1,000 Mg 0 each 01/15/20 09:00 01/19/20 08:33 PO 1 each DAILY DINESH Administration Turmeric Curcumin 0 each 01/15/20 09:00 01/19/20 08:33 500 Mg Cap PO 1 each DAILY DINESH Administration Pioglitazone HCl 45 mg 01/15/20 09:00 01/19/20 08:23 Actos PO 45 mg DAILY DINESH Administration Sodium Chloride 10 ml 01/14/20 21:06 01/18/20 21:30 Flush - Normal Saline IVF 10 ml PRN PRN Administration Saline Flush Sotalol HCl 40 mg 01/15/20 09:00 01/19/20 08:23 Betapace PO 40 mg BID DINESH Administration - Exam General - other findings: drowsy, in mild distress due to back pain ENT: normocephalic atraumatic, moist mucosa Neck: no JVD Heart: irregular Heart - other findings: overnight, mostly rate controlled with short episodes of >110 Respiratory: no wheezes, no ronchi Respiratory - other findings: bibasilar inspiratory rales Gastrointestinal: soft, non-tender, non-distended, normal bowel sounds Neurological: normal sensation to touch. negative: speech deficit Neurological - other findings: LLE: remains 0/5; otherwise diffuse weakness compared to yesterday Hosp A/P - Plan #left cerebellar hemorrhage neurological deterioration overnight repeat CT head showed interval evolution and retraction of cerebellar hematoma per NSG, no indication for surgical intervention; continue monitoring worseninig neurologic exam may be result of acute stroke in context of afib without anticoagulation. However, considering intracerebral hemorrhage, options are limited; defer to NSG #Afib w/ RVR well controlled when at rest; pain may contribute rales on lung exam (01/18) changed tylenol to scheduled with holding parameters changed cardizem to long acting if becomes increasingly short of breath, may be arrythmia-induced pulmonary edema; can have a low dose of lasix #HTN continue chlorthalidone, lisinopril, cardizem; labetalol PRN for SBP > 160 #T2DM continue metformin, pioglitazone. increased regimen due to poor control #CAD endorses taking aspirin and plavix; At this point will continue to hold considering lobar rather than deep hemorrhage; defer to NSG obtain records to assess indication for DAP. Based on patient's report, may need only aspirin but poor historian considering cerebellar hemorrhage stable and risk for stroke, history of CAD, should consider restarting low dose aspirin; defer to NSG GI PPx: no Ix DVT PPx: SCDs Full code
[2020-01-19] MEDS ORDERED: Bisacodyl 10 MG SUPP PR PRN (11:34)
[2020-01-19] MEDS: Acetaminophen 500 MG TAB PO SCH ×2 (11:57→17:09)
[2020-01-19] MEDS: Senokot S 8.6-50 MG TAB PO SCH (20:39)
[2020-01-19] MEDS: Atorvastatin Calcium 40 MG TAB PO SCH (20:42)
[2020-01-19] MEDS: Insulin Glargine 15 UNITS in Pre-Filled Syringe 1 EACH SC SCH (20:45)
[2020-01-20] MEDS: Acetaminophen 500 MG TAB PO SCH ×5 (00:09→23:37)
[2020-01-20] MEDS: HumaLOG 300 UNITS/3 ML VIAL SC PRN ×4 (00:19→17:35)
[2020-01-20 05:12] LABS: Band 1 % (5-11); Hemoglobin 15.6 g/dL (14.0-18.0); Lymphocytes 10 % (21-51); MDiff Complete? YES; Mean Corpuscular HGB CONC 32.5 g/dL (32.0-36.0); Mean Corpuscular Hemoglobin 31.2 pg (27.0-31.0); Mean Corpuscular Volume 96.1 fL (78.0-98.0); Mean Platelet Volume 8.4 fL (7.4-10.4); Monocytes 10 % (0-10); Neutrophil 78 % (42-75); Platelet Count 284 thou/uL (130-400); RBC Distribution Width 13.1 % (11.5-14.5); Reactive Lymphocytes 1 % (0-10); White Blood Cell (WBC) Count 12.3 thou/uL (4.8-10.8)
[2020-01-20] MEDS: TURMERIC CURCUMIN 500 MG PO SCH (08:30)
[2020-01-20] MEDS: Garlic 1,000 MG PO SCH (08:30)
[2020-01-20] MEDS: Pioglitazone HCl 15 MG TAB PO SCH (08:31)
[2020-01-20] MEDS: Fish Oil 1,000 MG CAP PO SCH (08:31)
[2020-01-20] MEDS: Lisinopril 20 MG TAB PO SCH ×2 (08:32→20:21)
[2020-01-20] MEDS: Diltiazem HCl CD 300 mg Capsule PO SCH (08:33)
[2020-01-20] MEDS: Magnesium Oxide 250 MG TAB PO SCH (08:34)
[2020-01-20] MEDS: Sotalol HCl 80 MG TAB PO SCH ×2 (08:34→20:21)
[2020-01-20] MEDS: Multivitamin W/ Minerals 1 TAB PO SCH (08:34)
[2020-01-20] MEDS: metFORMIN 850 MG TAB PO SCH ×2 (08:41→17:35)
[2020-01-20] MEDS: Senokot S 8.6-50 MG TAB PO SCH ×2 (08:41→20:21)
[2020-01-20] MEDS: Ondansetron PF 4 MG/2 ML Vial IVP PRN (08:56)
--- NOTE | 2020-01-20 12:58 | PDOC.HOSPP ---
- Subjective Encounter Date: 01/20/20 Encounter Time: 08:00 Subjective: No overnight events. this morning, barely arousable. Responds to voice, then immediately falls back to sleep. Could not elicit ROS or perform neurologic exam due to drowsiness. - Objective Vital Signs & Weight: Vital Signs (12 hours) Temp Pulse Resp BP Pulse Ox 01/20/20 11:22 97.5 F L 68 20 111/60 94 L 01/20/20 08:34 112 H 01/20/20 08:33 112 H 01/20/20 07:01 98.0 F 89 18 168/69 H 97 01/20/20 03:24 98.8 F 107 H 22 H 151/88 H 95 Weight Admit Weight 218 lb 6.4 oz Weight 227 lb Most Recent Monitor Data Heart Rate from ECG 101 NIBP 145/92 NIBP BP-Mean 109 Respiration from ECG 21 SpO2 95 I&O: 01/19/20 01/20/20 01/21/20 06:59 06:59 06:59 Output Total 1050 500 Balance -1050 -500 Result Diagrams: 01/20/20 04:46 01/19/20 05:01 Additional Labs: Accuchecks 01/20/20 01/20/20 01/19/20 12:14 05:33 23:37 POC Glucose 366 H 222 H 243 H 01/19/20 01/19/20 17:56 11:34 POC Glucose 226 H 250 H Hospitalist ROS - Review of Systems ROS unobtainable: due to mental status - Medication Medications: Active Medications Generic Name Dose Route Start Last Admin Trade Name Freq PRN Reason Stop Dose Admin Acarbose 25 mg 01/15/20 09:00 01/20/20 08:32 Precose PO 25 mg TID DINESH Administration Acetaminophen 1,000 mg 01/19/20 12:00 01/20/20 10:06 Tylenol PO 1,000 mg Q6HR DINESH Administration Atorvastatin Calcium 40 mg 01/19/20 21:00 01/19/20 20:42 Lipitor PO 40 mg HS DINESH Administration Bisacodyl 10 mg 01/19/20 11:34 01/19/20 12:32 Dulcolax PA 10 mg Q8H PRN Administration Constipation Diltiazem HCl 300 mg 01/20/20 09:00 01/20/20 08:33 Cardizem Cd PO 300 mg DAILY DINESH Administration Fish Oil 1,000 mg 01/15/20 09:00 01/20/20 08:31 Fish Oil PO 1,000 mg DAILY DINESH Administration Insulin Glargine 15 units/ 0.15 mls @ 0 mls/hr 01/19/20 21:00 01/19/20 20:45 Miscellaneous Medication SC 0.15 mls HS DINESH Administration As Directed Insulin Human Lispro 0 units 01/17/20 15:25 01/20/20 12:26 Humalog SC 6 unit .MILD SLIDING SCALE PRN Administration Mild Correctional Scale Iron/Minerals/Multivitamins 1 tab 01/15/20 09:00 01/20/20 08:34 Theragran M PO 1 tab DAILY DINESH Administration Labetalol HCl 10 mg 01/17/20 15:31 01/18/20 15:20 Normodyne SLOW IVP 10 mg Q4H PRN Administration SBP GREATER THAN 160 Lisinopril 20 mg 01/15/20 09:00 01/20/20 08:32 Zestril PO 20 mg BID DINESH Administration Magnesium Oxide 250 mg 01/15/20 09:00 01/20/20 08:34 Magnesium Oxide PO 250 mg DAILY DINESH Administration Metformin HCl 850 mg 01/15/20 08:00 01/20/20 08:41 Glucophage PO 850 mg BID-WM DINESH Administration Ondansetron HCl 4 mg 01/14/20 21:06 01/20/20 08:56 Zofran IVP 4 mg BIDPRN PRN Administration Nausea/Vomiting Garlic 1,000 Mg 0 each 01/15/20 09:00 01/20/20 08:30 PO 1 each DAILY DINESH Administration Turmeric Curcumin 0 each 01/15/20 09:00 01/20/20 08:30 500 Mg Cap PO 1 each DAILY DINESH Administration Pioglitazone HCl 45 mg 01/15/20 09:00 01/20/20 08:31 Actos PO 45 mg DAILY DINESH Administration Senna/Docusate Sodium 1 tab 01/19/20 21:00 01/20/20 08:41 Senokot S PO Not Given BID DINESH Sodium Chloride 10 ml 01/14/20 21:06 01/20/20 08:41 Flush - Normal Saline IVF 10 ml PRN PRN Administration Saline Flush Sotalol HCl 40 mg 01/15/20 09:00 01/20/20 08:34 Betapace PO 40 mg BID DINESH Administration - Exam General - other findings: drowsy, barely arousable Eye: PERRL Eye - other findings: would not follow finger with eyes ENT: normocephalic atraumatic, moist mucosa Neck: no JVD Heart: irregular Heart - other findings: rate 90-100 except when moved or exerts self, then 130s Respiratory: CTAB, no wheezes, no rales, no ronchi Gastrointestinal: soft, non-distended, normal bowel sounds Neurological - other findings: could not perform due to drowsiness Hosp A/P - Plan #left cerebellar hemorrhage neurological deterioration overnight repeat CT head showed interval evolution and retraction of cerebellar hematoma per NSG, no indication for surgical intervention; continue monitoring progressive drowsiness since 01/17; updated NSG worseninig neurologic exam may be result of acute stroke in context of afib without anticoagulation. However, considering intracerebral hemorrhage, options are limited; defer to NSG #Afib w/ RVR better controlled when at rest but 130s on movement/exertion increased cardizem to 300mg if becomes increasingly short of breath, may be arrythmia-induced pulmonary edema; can have a low dose of lasix #HTN continue chlorthalidone, lisinopril, cardizem; labetalol PRN for SBP > 160 #T2DM continue metformin, pioglitazone. increased insulin regimen now that eating and due to poor control #CAD endorses taking aspirin and plavix; At this point will continue to hold considering lobar rather than deep hemorrhage; defer to NSG obtain records to assess indication for DAP. Based on patient's report, may need only aspirin but poor historian considering cerebellar hemorrhage stable and risk for stroke, history of CAD, should consider restarting low dose aspirin; defer to NSG GI PPx: no Ix DVT PPx: SCDs Full code
--- NOTE | 2020-01-20 13:26 | CT ---
CT HEAD WITHOUT IV CONTRAST COMPARISON: 01/17/2020 HISTORY: Follow-up intracranial hemorrhage. Increased drowsiness and NIH. TECHNIQUE: Axial CT imaging at 5 mm intervals from vertex through skull base without contrast FINDINGS: The irregular intraparenchymal hemorrhage/hematoma in the left cerebellar hemisphere and extending in to the region of the cerebellar vermis and into the fourth ventricle is again seen and overall stable in size measuring 3.8 cm x 3.2 cm. Adjacent vasogenic edema is present also similar to the yanna or study. There is decreased attenuation again seen in the periventricular white matter which is nonspecific b ut likely reflective of severe chronic small vessel ischemic changes. There is mild cerebral volume loss. The ventricular system is normal in size, shape, and position for the degree of sulcal atrophy. There is no evidence of an acute infarction or midline shift. Slight mucosal thickening is again present in the left sphenoid sinus. Osseous structures appear intact. IMPRESSION: Overall stable intra-axial left cerebellar hemisphere hemorrhage with extension into the fourth ventr icle. Adjacent edema is again seen.
[2020-01-20 18:41] LABS: Anion Gap 15 mmol/L (10-20); BUN (Urea Nitrogen) 33 mg/dL (8.4-25.7); Calc. Creatinine Clearance 79 mL/min (70-130); Calcium 9.7 mg/dL (7.8-10.44); Carbon Dioxide 30 mmol/L (23-31); Chloride 90 mmol/L (98-107); Estimated GFR-MDRD 55; Glucose 205 mg/dL (80-115); Magnesium 2.1 mg/dL (1.6-2.6); Potassium 3.7 mmol/L (3.5-5.1); Sodium 131 mmol/L (136-145)
[2020-01-20] MEDS: Insulin Glargine 15 UNITS in Pre-Filled Syringe 1 EACH SC SCH (20:22)
[2020-01-20] MEDS: Atorvastatin Calcium 40 MG TAB PO SCH (20:22)
[2020-01-21 05:22] LABS: Band 6 % (5-11); Hemoglobin 14.9 g/dL (14.0-18.0); Lymphocytes 16 % (21-51); MDiff Complete? YES; Mean Corpuscular HGB CONC 33.6 g/dL (32.0-36.0); Mean Corpuscular Hemoglobin 32.2 pg (27.0-31.0); Mean Platelet Volume 8.8 fL (7.4-10.4); Monocytes 9 % (0-10); Neutrophil 69 % (42-75); Platelet Count 262 thou/uL (130-400); Platelet Morphology Comment Appears Adequate; RBC Distribution Width 13.2 % (11.5-14.5); Red Blood Cell (RBC) Count 4.63 mill/uL (4.70-6.10); White Blood Cell (WBC) Count 12.2 thou/uL (4.8-10.8)
[2020-01-21] MEDS: HumaLOG 300 UNITS/3 ML VIAL SC PRN ×3 (05:30→17:15)
[2020-01-21 05:32] LABS: Anion Gap 16 mmol/L (10-20); BUN (Urea Nitrogen) 42 mg/dL (8.4-25.7); Calc. Creatinine Clearance 56 mL/min (70-130); Calcium 9.4 mg/dL (7.8-10.44); Carbon Dioxide 28 mmol/L (23-31); Chloride 91 mmol/L (98-107); Estimated GFR-MDRD 37; Glucose 268 mg/dL (80-115); Potassium 3.7 mmol/L (3.5-5.1); Sodium 131 mmol/L (136-145)
[2020-01-21] MEDS: Acetaminophen 500 MG TAB PO SCH ×3 (05:36→17:16)
[2020-01-21] MEDS ORDERED: HumaLOG 300 UNITS/3 ML VIAL SC SCH (07:30)
--- NOTE | 2020-01-21 07:56 | RAD ---
XR Chest 1 View Portable History: Desaturation Comparison: Radiograph January 18, 2020 Findings: Heart size is enlarged. Multiple midline sternotomy wires. No pneumothorax. No significant effusion. Mild levoscoliosis. Impression: Slight improved lung aeration.
[2020-01-21 09:13] VITALS: BMI 33.3
[2020-01-21] MEDS: Sodium Chloride 0.9% 1,000 ML IV SCH (09:16)
[2020-01-21] MEDS: metFORMIN 850 MG TAB PO SCH ×2 (09:18→17:16)
[2020-01-21] MEDS: Fish Oil 1,000 MG CAP PO SCH (09:19)
[2020-01-21] MEDS: Multivitamin W/ Minerals 1 TAB PO SCH (09:19)
[2020-01-21] MEDS: Pioglitazone HCl 15 MG TAB PO SCH (09:19)
[2020-01-21] MEDS: Sotalol HCl 80 MG TAB PO SCH (09:20)
[2020-01-21] MEDS: Senokot S 8.6-50 MG TAB PO SCH (09:20)
[2020-01-21] MEDS: Magnesium Oxide 250 MG TAB PO SCH (09:20)
--- NOTE | 2020-01-21 09:21 | PRG ---
DATE OF SERVICE: 01/21/2020 Mr. Tyson was known to us for admission and subsequent evaluation for posterior fossa hemorrhage. He has been on the stroke unit for quite some time and is being prepared to transition to a swing bed. We were asked to re-evaluate him secondary to altered mental status. I met with him this morning and reviewed all of his images and most recent data on his clinical chart. He has a posterior fossa hemorrhage that upon subsequent CT scans, he has actually shown slight retraction of the hemorrhage and jimmy-hemorrhagic edema with improvement in mass effect and actually opening out fourth ventricle. He does have a ventriculomegaly which has been present since admission, but the ventricle size appears to be the same as it was on imaging performed 10 years prior. Therefore, my concern for clinically significant hydrocephalus is very low. Upon my interrogation of him this morning, he is a little sleepy, but he does awaken and he follows commands appropriately and answers my questions. He does indicate he is ready to leave the hospital. He today than he has been on prior occasions. We will rule out UTI. This may just be an encephalopathy from his prolonged hospitalization and his hemorrhage. From a Neurosurgical perspective, I do not believe there needs to be any other intervention performed at this time. From my perspective, he can be discharged to swing bed and will arrange near-term followup. Job ID: [id number]
[2020-01-21] MEDS: Diltiazem HCl CD 300 mg Capsule PO SCH (09:22)
[2020-01-21] MEDS: Lisinopril 20 MG TAB PO SCH (09:23)
[2020-01-21] MEDS: TURMERIC CURCUMIN 500 MG PO SCH (09:24)
[2020-01-21] MEDS: Garlic 1,000 MG PO SCH (09:24)
[2020-01-21 10:47] LABS: Bacteria/HPF None Seen HPF (None Seen); Bilirubin Negative (Negative); Blood, Urine Negative (Negative); Clarity Turbid (Clear); Glucose, Urine (Dipstick) 50 mg/dL (Negative); Ketone, Urine 20 mg/dL (Negative); Leukocyte Negative Leu/uL (Negative); Mucous/LPF 1+ LPF (<2+); Nitrite Negative (Negative); Protein, Urine (Dipstick) 50 mg/dL (Neg-Trace); Specific Gravity, Urine 1.033 (1.002-1.036); Squamous Epithelial 0-3 HPF (0-3); Urobilinogen Normal mg/dL (Less than 2); pH, Urine 5.5 (5.0-9.0)
[2020-01-21 10:49] LABS: Urine Culture Reflex Yes Yes
--- NOTE | 2020-01-21 11:52 | PDOC.HOSPP ---
- Subjective Encounter Date: 01/21/20 Encounter Time: 08:00 Subjective: overnight, not eating per nurse. This morning, more alert but now can't move LUE , significant change compare to two days ago. Notified nurse. - Objective Vital Signs & Weight: Vital Signs (12 hours) Temp Pulse Resp BP BP Pulse Ox 01/21/20 11:03 98.3 F 92 18 137/103 H 92 L 01/21/20 09:23 167/85 H 01/21/20 09:22 79 167/85 H 01/21/20 09:20 79 167/85 H 01/21/20 07:17 97.6 F 95 18 122/91 H 93 L 01/21/20 05:12 98.8 F 58 L 22 H 115/83 93 L Weight Admit Weight 218 lb 6.4 oz Weight 219 lb 11.2 oz Most Recent Monitor Data Heart Rate from ECG 101 NIBP 145/92 NIBP BP-Mean 109 Respiration from ECG 21 SpO2 95 I&O: 01/20/20 01/21/20 01/22/20 06:59 06:59 06:59 Intake Total 360 Output Total 500 425 Balance -500 -65 Result Diagrams: 01/21/20 04:28 01/21/20 04:28 Additional Labs: Accuchecks 01/21/20 01/21/20 01/20/20 11:07 05:32 21:48 POC Glucose 256 H 276 H 227 H 01/20/20 01/20/20 17:30 12:14 POC Glucose 208 H 366 H Hospitalist ROS - Review of Systems Constitutional: reports: weakness. denies: fever, chills, sweats Eyes: denies: vision change Respiratory: denies: cough, shortness of breath, pleuritic pain Cardiovascular: denies: chest pain, palpitations Gastrointestinal: denies: nausea, vomiting, abdominal pain Genitourinary: denies: dysuria, frequency, hematuria - Medication Medications: Active Medications Generic Name Dose Route Start Last Admin Trade Name Freq PRN Reason Stop Dose Admin Acarbose 25 mg 01/15/20 09:00 01/21/20 09:23 Precose PO 25 mg TID [facility] Administration Acetaminophen 1,000 mg 01/19/20 12:00 01/21/20 05:36 Tylenol PO Not Given Q6HR [facility] Atorvastatin Calcium 40 mg 01/19/20 21:00 01/20/20 20:22 Lipitor PO 40 mg HS DINESH Administration Bisacodyl 10 mg 01/19/20 11:34 01/19/20 12:32 Dulcolax MT 10 mg Q8H PRN Administration Constipation Diltiazem HCl 300 mg 01/20/20 09:00 01/21/20 09:22 Cardizem Cd PO 300 mg DAILY DINESH Administration Fish Oil 1,000 mg 01/15/20 09:00 01/21/20 09:19 Fish Oil PO 1,000 mg DAILY DINESH Administration Sodium Chloride 1,000 mls @ 60 mls/hr 01/21/20 09:15 01/21/20 09:16 Normal Saline 0.9% IV 1,000 mls .[id number] DINESH Administration Insulin Human Lispro 0 units 01/17/20 15:25 01/21/20 05:30 Humalog SC 4 unit .MILD SLIDING SCALE PRN Administration Mild Correctional Scale Iron/Minerals/Multivitamins 1 tab 01/15/20 09:00 01/21/20 09:19 Theragran M PO 1 tab DAILY DINESH Administration Labetalol HCl 10 mg 01/17/20 15:31 01/18/20 15:20 Normodyne SLOW IVP 10 mg Q4H PRN Administration SBP GREATER THAN 160 Lisinopril 20 mg 01/15/20 09:00 01/21/20 09:23 Zestril PO 20 mg BID DINESH Administration Magnesium Oxide 250 mg 01/15/20 09:00 01/21/20 09:20 Magnesium Oxide PO 250 mg DAILY DINSEH Administration Metformin HCl 850 mg 01/15/20 08:00 01/21/20 09:18 Glucophage PO 850 mg BID-WM DINESH Administration Ondansetron HCl 4 mg 01/14/20 21:06 01/20/20 08:56 Zofran IVP 4 mg BIDPRN PRN Administration Nausea/Vomiting Garlic 1,000 Mg 0 each 01/15/20 09:00 01/21/20 09:24 PO 1 each DAILY DINESH Administration Turmeric Curcumin 0 each 01/15/20 09:00 01/21/20 09:24 500 Mg Cap PO 1 each DAILY DINESH Administration Pioglitazone HCl 45 mg 01/15/20 09:00 01/21/20 09:19 Actos PO 45 mg DAILY DINESH Administration Senna/Docusate Sodium 1 tab 01/19/20 21:00 01/21/20 09:20 Senokot S PO 1 tab BID DINESH Administration Sodium Chloride 10 ml 01/14/20 21:06 01/20/20 20:22 Flush - Normal Saline IVF 10 ml PRN PRN Administration Saline Flush Sotalol HCl 40 mg 01/15/20 09:00 01/21/20 09:20 Betapace PO 40 mg BID DINESH Administration - Exam General Appearance: awake alert General - other findings: drowsy though improved compared to yesterday Eye: PERRL Eye - other findings: 3mm-> 2mm. sluggish reactivity. ENT: dry oral mucosa Neck: no JVD Heart: irregular Heart - other findings: HR ranges from 60-110s, higher usually when exerts self Respiratory: CTAB, no wheezes, no rales, no ronchi Respiratory - other findings: diffusely reduced breath sounds, unchanged Gastrointestinal: soft, non-tender, non-distended, normal bowel sounds Extremities: 1+ LE edema Neurological: negative: cranial nerve grossly intact ( tongue slants to left, shrugging shoulders weak on left) Neurological - other findings: tongue slants to left; JAVIER and LLE 0/5 (worse), light touch intact Hosp A/P - Plan #left cerebellar hemorrhage progressive drowsiness since 01/17; now improved 01/19; updated NSG; CT head unchanged poor oral intake (01/19) worseninig neurologic exam (first LLE, now LUE) may be result of acute stroke in context of afib without anticoagulation. However, considering intracerebral hemorrhage, options are limited; defer to NSG #GENE -likely due to reduced oral intake -removed newby, not retaining but low output likely due to reduced oral intake -started gentle hydration -continue bladder scans and straight caths #Afib/aflut w/ RVR well controlled 60s-110s (when active) continue cardizem 300mg qd if becomes increasingly short of breath, may be arrythmia-induced pulmonary edema; can have a low dose of lasix #HTN continue chlorthalidone, lisinopril, cardizem; labetalol PRN for SBP > 160 #T2DM poorly controlled; continue metformin, pioglitazone. increased lantus due and dced short acting due to poor oral intake #CAD endorses taking aspirin and plavix; At this point will continue to hold considering lobar rather than deep hemorrhage; defer to NSG obtain records to assess indication for DAP. Based on patient's report, may need only aspirin but poor historian considering cerebellar hemorrhage stable and risk for stroke, history of CAD, should consider restarting low dose aspirin; defer to NSG GI PPx: no Ix DVT PPx: SCDs Full code
--- NOTE | 2020-01-21 16:40 | EKG ---
Test Reason : CP Blood Pressure : / mmHG Vent. Rate : 107 BPM Atrial Rate : 312 BPM P-R Int : 000 ms QRS Dur : 100 ms QT Int : 394 ms P-R-T Axes : 000 -21 213 degrees QTc Int : 525 ms Atrial flutter with variable A-V block RSR' or QR pattern in V1 suggests right ventricular conduction delay Cannot rule out Inferior infarct , age undetermined Anteroseptal infarct , age undetermined Prolonged QT Abnormal ECG Confirmed by DR. Jessica GUZMAN ([id number]) on 01/21/2020 4:39:38 PM Referred By: LISA Confirmed By:DR. Jessica GUZMAN
[2020-01-21] MEDS ORDERED: Insulin Glargine 25 UNITS in Pre-Filled Syringe 1 EACH SC SCH (21:00)
[2020-01-22] MEDS: Sotalol HCl 80 MG TAB PO SCH ×2 (00:28→08:25)
[2020-01-22] MEDS: Senokot S 8.6-50 MG TAB PO SCH ×2 (00:30→08:26)
[2020-01-22] MEDS: Lisinopril 20 MG TAB PO SCH ×2 (00:30→08:24)
[2020-01-22] MEDS: Acetaminophen 500 MG TAB PO SCH ×3 (00:32→12:54)
[2020-01-22] MEDS: Atorvastatin Calcium 40 MG TAB PO SCH (00:32)
[2020-01-22 05:55] LABS: Hemoglobin 14.3 g/dL (14.0-18.0); Lymphocytes 17 % (21-51); MDiff Complete? YES; Mean Corpuscular HGB CONC 32.6 g/dL (32.0-36.0); Mean Corpuscular Hemoglobin 31.3 pg (27.0-31.0); Mean Platelet Volume 8.8 fL (7.4-10.4); Monocytes 5 % (0-10); Neutrophil 78 % (42-75); Platelet Count 230 thou/uL (130-400); Platelet Morphology Comment Appears Adequate; RBC Distribution Width 13.1 % (11.5-14.5); Red Blood Cell (RBC) Count 4.58 mill/uL (4.70-6.10); White Blood Cell (WBC) Count 13.3 thou/uL (4.8-10.8)
[2020-01-22 06:06] LABS: Anion Gap 15 mmol/L (10-20); BUN (Urea Nitrogen) 34 mg/dL (8.4-25.7); Calc. Creatinine Clearance 100 mL/min (70-130); Calcium 8.9 mg/dL (7.8-10.44); Carbon Dioxide 27 mmol/L (23-31); Chloride 93 mmol/L (98-107); Estimated GFR-MDRD 75; Glucose 229 mg/dL (80-115); Magnesium 1.9 mg/dL (1.6-2.6); Potassium 3.6 mmol/L (3.5-5.1); Sodium 131 mmol/L (136-145)
[2020-01-22] MEDS: HumaLOG 300 UNITS/3 ML VIAL SC PRN ×2 (06:27→13:09)
[2020-01-22] MEDS: Sodium Chloride 0.9% 1,000 ML IV SCH (06:27)
[2020-01-22] MEDS: Pioglitazone HCl 15 MG TAB PO SCH (08:23)
[2020-01-22] MEDS: Magnesium Oxide 250 MG TAB PO SCH (08:24)
[2020-01-22] MEDS: metFORMIN 850 MG TAB PO SCH (08:24)
[2020-01-22] MEDS: Multivitamin W/ Minerals 1 TAB PO SCH (08:24)
[2020-01-22] MEDS: Diltiazem HCl CD 300 mg Capsule PO SCH (08:24)
[2020-01-22] MEDS: Fish Oil 1,000 MG CAP PO SCH (08:25)
[2020-01-22] MEDS: Garlic 1,000 MG PO SCH (08:27)
[2020-01-22] MEDS: TURMERIC CURCUMIN 500 MG PO SCH (08:27)
--- NOTE | 2020-01-22 10:41 | PDOC.HOSPP ---
- Subjective Encounter Date: 01/22/20 Encounter Time: 09:00 Subjective: awake, eating breakfast (is being fed) knows he is in hospital moves right extremities but not left - Objective Vital Signs & Weight: Vital Signs (12 hours) Temp Pulse Resp BP BP Pulse Ox 01/22/20 08:25 95 01/22/20 08:24 96 01/22/20 07:18 98.9 F 95 20 125/78 93 L 01/22/20 03:04 98.2 F 90 23 H 119/84 95 01/22/20 00:30 142/90 H 01/22/20 00:28 102 H 142/90 H 01/21/20 23:46 97.9 F 102 H 20 142/90 H 96 Weight Admit Weight 218 lb 6.4 oz Weight 219 lb Most Recent Monitor Data Heart Rate from ECG 101 NIBP 145/92 NIBP BP-Mean 109 Respiration from ECG 21 SpO2 95 I&O: 01/21/20 01/22/20 01/23/20 06:59 06:59 06:59 Intake Total 360 Output Total 425 200 Balance -65 -200 Result Diagrams: 01/22/20 05:17 01/22/20 05:17 Additional Labs: Accuchecks 01/22/20 01/22/20 01/21/20 10:27 05:35 20:14 POC Glucose 256 H 216 H 234 H 01/21/20 01/21/20 16:49 11:07 POC Glucose 232 H 256 H Hospitalist ROS - Medication Medications: Active Medications Generic Name Dose Route Start Last Admin Trade Name Freq PRN Reason Stop Dose Admin Acarbose 25 mg 01/15/20 09:00 01/22/20 08:26 Precose PO 25 mg TID DINESH Administration Acetaminophen 1,000 mg 01/19/20 12:00 01/22/20 06:27 Tylenol PO 1,000 mg Q6HR DINESH Administration Atorvastatin Calcium 40 mg 01/19/20 21:00 01/22/20 00:32 Lipitor PO 40 mg HS DINESH Administration Bisacodyl 10 mg 01/19/20 11:34 01/19/20 12:32 Dulcolax ID 10 mg Q8H PRN Administration Constipation Diltiazem HCl 300 mg 01/20/20 09:00 01/22/20 08:24 Cardizem Cd PO 300 mg DAILY DINESH Administration Fish Oil 1,000 mg 01/15/20 09:00 01/22/20 08:25 Fish Oil PO 1,000 mg DAILY DINESH Administration Sodium Chloride 1,000 mls @ 60 mls/hr 01/21/20 09:15 01/22/20 06:27 Normal Saline 0.9% IV 1,000 mls .[id number] DINESH Administration Insulin Glargine 25 units/ 0.25 mls @ 0 mls/hr 01/21/20 21:00 01/22/20 00:32 Miscellaneous Medication SC 0.25 mls HS DINESH Administration As Directed Insulin Human Lispro 0 units 01/17/20 15:25 01/22/20 06:27 Humalog SC 3 unit .MILD SLIDING SCALE PRN Administration Mild Correctional Scale Iron/Minerals/Multivitamins 1 tab 01/15/20 09:00 01/22/20 08:24 Theragran M PO 1 tab DAILY DINESH Administration Labetalol HCl 10 mg 01/17/20 15:31 01/18/20 15:20 Normodyne SLOW IVP 10 mg Q4H PRN Administration SBP GREATER THAN 160 Lisinopril 20 mg 01/15/20 09:00 01/22/20 08:24 Zestril PO 20 mg BID DINESH Administration Magnesium Oxide 250 mg 01/15/20 09:00 01/22/20 08:24 Magnesium Oxide PO 250 mg DAILY DINESH Administration Metformin HCl 850 mg 01/15/20 08:00 01/22/20 08:24 Glucophage PO 850 mg BID-WM DINESH Administration Ondansetron HCl 4 mg 01/14/20 21:06 01/20/20 08:56 Zofran IVP 4 mg BIDPRN PRN Administration Nausea/Vomiting Garlic 1,000 Mg 0 each 01/15/20 09:00 01/22/20 08:27 PO 1 each DAILY DINESH Administration Turmeric Curcumin 0 each 01/15/20 09:00 01/22/20 08:27 500 Mg Cap PO 1 each DAILY DINESH Administration Pioglitazone HCl 45 mg 01/15/20 09:00 01/22/20 08:23 Actos PO 45 mg DAILY DINESH Administration Senna/Docusate Sodium 1 tab 01/19/20 21:00 01/22/20 08:26 Senokot S PO 1 tab BID DINESH Administration Sodium Chloride 10 ml 01/14/20 21:06 01/22/20 08:23 Flush - Normal Saline IVF 10 ml PRN PRN Administration Saline Flush Sotalol HCl 40 mg 01/15/20 09:00 01/22/20 08:25 Betapace PO 40 mg BID DINESH Administration - Exam General Appearance: awake alert Eye: PERRL, anicteric sclera ENT: no oropharyngeal lesions, moist mucosa Neck: supple, no JVD Heart: RRR, no gallops, murmur present Respiratory: no wheezes, no rales Gastrointestinal: soft, non-tender, non-distended, normal bowel sounds Extremities: no cyanosis, no edema Neurological: hemiplegia Hosp A/P (1) ICH (intracerebral hemorrhage) Code(s): I61.9 - NONTRAUMATIC INTRACEREBRAL HEMORRHAGE, UNSPECIFIED Status: Acute Qualifiers: Intracerebral hemorrhage etiology: nontraumatic Cerebral hemorrhage location: cerebellum Laterality: left Qualified Code(s): I61.4 - Nontraumatic intracerebral hemorrhage in cerebellum (2) HTN (hypertension) Code(s): I10 - ESSENTIAL (PRIMARY) HYPERTENSION Status: Chronic Qualifiers: Hypertension type: essential hypertension Qualified Code(s): I10 - Essential (primary) hypertension (3) Afib Code(s): I48.91 - UNSPECIFIED ATRIAL FIBRILLATION Status: Chronic Qualifiers: Atrial fibrillation type: paroxysmal Qualified Code(s): I48.0 - Paroxysmal atrial fibrillation (4) DM type 2 (diabetes mellitus, type 2) Status: Chronic Qualifiers: Diabetes mellitus termite helper insulin use: with chcf use (5) CAD (coronary artery disease) Code(s): I25.10 - ATHSCL HEART DISEASE OF [place] CORONARY ARTERY W/O ANG PCTRS Status: Chronic Qualifiers: Coronary Disease-Associated Artery/Lesion type: bypass graft [place] vs. transplanted heart: [place] heart Associated angina: without angina Qualified Code(s): I25.810 - Atherosclerosis of coronary artery bypass graft(s) without angina pectoris (6) Physical deconditioning Code(s): R53.81 - OTHER MALAISE Status: Acute (7) CVA (cerebral vascular accident) Code(s): I63.9 - CEREBRAL INFARCTION, UNSPECIFIED Status: Acute Qualifiers: CVA mechanism: other Qualified Code(s): I63.89 - Other cerebral infarction - Plan left cerebellar bleed with intraventricular extension and hemorrhagic cva with left hemiplegia htn is controlled on current meds is on lipitor, fish oil, sotalol, cardizem cd, lisinopril, metformin, actos, lantus, acarbose. has deconditioning sec to cva encourage po intake PT to mobilize as tolerated add flomax for off and on urinary retention, no newby unless the retention is > 600ml has had brain stem bleed with multiple comorbid issues, deconditioning, prognosis guarded. may dc anytime to swing bed if accepted, d/w CM
[2020-01-22 11:09] VITALS: TEMP 98.3
[2020-01-22 13:55] VITALS: BP 146/109
--- NOTE | 2020-01-22 18:02 | DIS ---
DATE OF ADMISSION: 01/14/2020 DATE OF DISCHARGE: 01/22/2020 DISCHARGE DISPOSITION: To [facility]. 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 SECONDARY DISCHARGE DIAGNOSES: History of paroxysmal atrial fibrillation, hypertension, coronary artery disease, diabetes mellitus type 2. PROCEDURES DONE DURING HOSPITALIZATION: CT brain done on the day of admission showed hematoma/intracranial hemorrhage measuring 3.5 x 4.5 cm in the medial aspect of the left cerebellar hemisphere extending into the 4th ventricle. There was diffuse brain parenchymal atrophy with chronic small-vessel ischemic disease, overall severe. Chest x-ray on the showed bilateral vascular congestion. Blood cultures x2, no growth. Urine culture, no growth. Had a white count of 19 on the day of admission, discharge white count is 13, H and H 14 and 43, platelet count 230, with 78% neutrophils. BUN 34, creatinine 0.9. BNP was 133. DISCHARGE MEDICATIONS: 1. Metformin 850 mg p.o. twice daily. 2. Fish oil one capsule daily. 3. Pravastatin 40 mg p.o. at bedtime. 4. Sotalol 40 mg twice daily. 5. Cardizem CD 300 mg p.o. daily. 6. Lantus 25 units subcu at bedtime. 7. Lisinopril 20 mg p.o. twice daily. Please note, this needs to be discontinued if his BUN and creatinine gets worse. 8. Multivitamin one tablet once daily. 9. Actos 45 mg p.o. daily. 10. Flomax 0.4 mg p.o. at bedtime. ALLERGIES: TO ATORVASTATIN AND PENICILLIN. INPATIENT CONSULT: Dr. Flores for Neurosurgery. DISCHARGE PLAN: The patient to follow up with Dr. Flores in 1 week. He needs to follow up with his primary care physician in 1 week. BRIEF COURSE DURING HOSPITALIZATION: The patient initially got admitted on the after he was found down by his family. EMS was summoned and the patient was taken to [facility]. He has had a CT brain done, which revealed left cerebellar hemisphere hemorrhage with left hemiplegia. He was transferred here and was admitted to ICU for higher level of care. He was on Cardene drip initially and has been transitioned to oral medications. He was maintaining airway and was later downgraded to stroke unit. His medications were optimized. The patient's overall prognosis is guarded given large left cerebellar bleed with intraventricular extension and hemorrhagic CVA with multiple medical issues. He has severe deconditioning as well. He is being discharged to swing bed for further recuperation and physical therapy and to see if he can be discharged home or if the patient needs residential care post rehabilitation at the swing bed. He is otherwise neurologically stable. No surgery was done by Neurosurgery. He has had serial CAT scans done which has not shown any significant hydrocephalus with his hemorrhage extending into the 4th ventricle. He has been cleared by Neurosurgery for discharge. A total of 35 minutes was spent on discharge plan. I have given complete updates to Dr. Diggs at the [facility]. Please see a [id number] documentation for the day of discharge on [employer]. Job ID: [id number]
[2020-01-22] MEDS ORDERED: Tamsulosin HCl 0.4 MG CAP PO SCH (21:00)
== END 2020-01-22 15:55 | disposition swing bed (61) | DRG 64 ==
LOC: CCU 21:00 → 2SE 01-17 14:15
PROVIDERS: ADMIT Neurological Surgery; ATTEND Internal Medicine
DX: I61.4 Nontraumatic intracerebral hemorrhage in cerebellum (principal); G93.5 Compression of brain; I63.89 Other cerebral infarction; G81.94 Hemiplegia, unspecified affecting left nondominant side; N17.9 Acute kidney failure, unspecified; E87.1 Hypo-osmolality and hyponatremia; G91.9 Hydrocephalus, unspecified; R13.10 Dysphagia, unspecified; I48.0 Paroxysmal atrial fibrillation; I10 Essential (primary) hypertension; I25.10 Atherosclerotic heart disease of native coronary artery without angina pectoris; E78.5 Hyperlipidemia, unspecified; E11.65 Type 2 diabetes mellitus with hyperglycemia; R29.712 NIHSS score 12; R27.0 Ataxia, unspecified; Z88.0 Allergy status to penicillin; Z88.8 Allergy status to other drugs, medicaments and biological substances; Z95.1 Presence of aortocoronary bypass graft; Z79.84 Long term (current) use of oral hypoglycemic drugs; Z79.899 Other long term (current) drug therapy; Z79.82 Long term (current) use of aspirin; Z79.01 Long term (current) use of anticoagulants; Z95.5 Presence of coronary angioplasty implant and graft
CPT/HCPCS: 36415; 36416; 36430; 36600; 70450; 71045; 80048; 81001; 83735; 83880; 85007; 85025; 85027; 86850; 86900; 86901; 87040; 87086; 93005; 93010; J1815; J2405; J3490; J7050; P9035; S0028